=== PATIENT | male | born 1970 | race Asian ===

== ENCOUNTER 2016-07-01 11:15 | Emergency (ER) | payer OTHER, MEDICAID ==
[~2016-07-01] VITALS: Ht 174 cm; Wt 83.2 kg
[2016-07-01 11:27] VITALS: BP 149/109
--- NOTE | 2016-07-01 14:06 | NUR ---
PATIENT BECAME AGITATED AND WAS IN ER LOBBY BOTHERING OTHER CLIENTS AND ASKING FOR FOOD AND AND DRINKS. SECURITY WAS CALLED AND PATIENT WAS ESCORTED OUTSIDE AND CARMELLA PERRY WAS CALLED. ON ARRIVAL OFFICERS APPROACHED THIS CLIENT AND HE WAS ASKED TO LEAVE HOSPITAL GROUNDS HE HAD NO MEDICAL COMPLAINT. PERSON WAS ESCORTED TO SIDE WALK BY CARMELLA PERRY AND SECURITY. NO FURTHER CARE GIVEN. PATIENT WAS AWAKE AND ALERT, ABLE TO AMBULATE WITHOUT DIFFICULTY NO DISTRESS NOTED.
== END 2016-07-01 14:06 | disposition left against medical advice (07) ==
LOC: MED 11:15
DX: Z04.8 Encounter for examination and observation for other specified reasons (principal); Z53.21 Procedure and treatment not carried out due to patient leaving prior to being seen by health care provider

== ENCOUNTER 2016-07-01 19:10 | Inpatient (IN) | payer MEDICAID, MEDICARE, OTHER ==
[~2016-07-01] VITALS: Ht 167.6 cm; Wt 69.9 kg
[2016-07-01 19:40] VITALS: BP 145/70
--- NOTE | 2016-07-01 19:40 | NUR ---
PATIENT LEFT WITHOUT BEING SEEN BY DR. VASQUEZ. NO FURTHER CARE PROVIDED FOR PATIENT.
--- NOTE | 2016-07-01 22:40 | NUR ---
PT TAKEN TO BED 3
--- NOTE | 2016-07-01 22:42 | NUR ---
Dr. Yun evaluating patient at bedside.
[2016-07-01] MEDS ORDERED: OLANZapine 5 MG TAB PO STA (22:48)
--- NOTE | 2016-07-01 22:48 | NUR ---
All evening pt has been sitting and pacing waiting room. Pt unable to answer most questions, just smiles and giggles when asked questions. Attempted to call number on file and only get voice mail which pt voice greeting in a very lucid message. Brought pt back to Room [address] Yun evaluate.
[2016-07-01] MEDS ORDERED: OLANZapine 5 MG TAB ONE (23:15)
--- NOTE | 2016-07-01 23:35 | NUR ---
45Y/M PATIENT PRESENTS TO ED WITH C/O EPISODE OF CRYING . PT WAS SEEN AT [facility] STEP OUT WITH CRYING AND NOT CO-ORDINATE WITH STAFFS.; SKIN IS PINK/WARM/DRY; PT. AAO X 1 TO SELF, NOT CO-ORDINATE, UNABLE TO ANSWER ALL QUESTION. AMBULATORY WITH UNSTEADY GAIT; LUNGS CLEAR BL; HR EVEN AND REGULAR; PT DENIES ANY FEVER, CP, SOB, OR COUGH AT THIS TIME; PATIENT STATES PAIN OF 0/10 AT THIS TIME; VSS; PATIENT POSITIONED FOR COMFORT; HOB ELEVATED; BEDRAILS UP X2; BED DOWN. ER MD MADE AWARE OF PT STATUS.
--- NOTE | 2016-07-01 23:43 | NUR ---
PT TAKEN TO CT
--- NOTE | 2016-07-02 | NUR ---
PT RETURN FROM CT
--- NOTE | 2016-07-02 00:20 | NUR ---
UNABLE TO COLLECT URINE SPECIMEN, DR. VASQUEZ MADE AWARE.
--- NOTE | 2016-07-02 01:16 | NUR ---
Patient will be admitted to care of DR. ARGUELLES. Admited to TELEMETRY Will go to room 124. Belongings list completed.
--- NOTE | 2016-07-02 01:34 | NUR ---
REPORT GIVEN TO MARK VALENTIN.
[2016-07-02] MEDS ORDERED: HYDROcodone/APAP 5/325 MG 1 TAB TAB PO PRN (01:50)
[2016-07-02] MEDS ORDERED: ONDANSETRON 4 MG/2 ML VIAL IVP PRN (01:50)
[2016-07-02] MEDS ORDERED: MORPHINE SULFATE 2 MG/ML SYR IVP PRN (01:50)
[2016-07-02] MEDS ORDERED: ACETAMINOPHEN 325 MG TAB PO PRN (01:50)
[2016-07-02] MEDS ORDERED: LORazepam 2 MG/ML VIAL IVP PRN ×2 (02:00→18:05)
--- NOTE | 2016-07-02 02:10 | NUR ---
Admitted from E.. with chief complaint of ALTERED LEVEL OF CONSCIOUSNESS. A 45 y/o. Male, Fatigued. PT IS VERY DROWSY RIGHT NOW BUT ABLE TO FOLLOW SIMPLE COMMANDS AND ABLE TO ANSWER SIMPLE QUESTIONS. NO C/O PAIN OR ANY DISCOMFORT AT THIS TIME. SKIN IS INTACT CLEAN DRY AND WARM TO TOUCH. PLAN OF CARE REVIEWED TO PT BUT UNABLE TO COMPREHEND. oriented to call light, bed, phone,television, bathroom, smoking policy, visiting hours, procedures, ID bracelet on. Belongings list checked. CALL LIGHT WITHIN REACH. WILL CONTINUE TO MONITOR.
[2016-07-02] MEDS: NACL 0.9% 1,000 ML IV SCH ×3 (02:50→20:21)
[2016-07-02 04:00] VITALS: BP 122/74
--- NOTE | 2016-07-02 04:30 | NUR ---
PT STILL SLEEPING RIGHT NOW BUT EASILY AROUSABLE. NO S/S OF ANY DISCOMFORT AT THIS TIME. ALL NEEDS ARE ATTENDED. CALL LIGHT WITHIN REACH. WILL CONTINUE TO MONITOR.
--- NOTE | 2016-07-02 06:00 | NUR ---
AM CARE RENDERED. BED LINEN CHANGED. INSTRUCTED PT REPOSITION. KEPT CLEAN AND DRY. CALL LIGHT WITHIN REACH, WILL CONTINUE TO MONITOR.
--- NOTE | 2016-07-02 07:30 | NUR ---
PT HAS NO S/S OF ANY DISCOMFORT. PLAN OF CARE ENDORSE TO WEI VALENTIN AT BEDSIDE FOR CONTINUITY OF CARE.
--- NOTE | 2016-07-02 07:30 | NUR ---
RECEIVED PT FROM MARK VALENTIN. PT IS LETHARGIC, DOES NOT FOLLOW COMMANDS. ON ROOM AIR, NO S/S OF RESPIRATORY DISTRESS NOTED. IV TO RIGHT AV #20, INTACT AND PATENT. VITALS TAKEN IN NORMAL RANGE. PT HAS GENERALIZED WEAKNESS, CALL LIGHT IN REACH, HOB ELEVATED 30 DEGREES WITH LOW BED POSITION. WILL CONTINUE TO MONITOR.
[2016-07-02 08:00] VITALS: BP 100/72
--- NOTE | 2016-07-02 08:12 | NUR ---
PATIENT HAS BEEN SCREENED AND CATEGORIZED LOW NUTRITION RISK. PATIENT WILL BE SEEN WITHIN 7 DAYS OF ADMISSION. 07/08/[address]
--- NOTE | 2016-07-02 09:15 | NUR ---
AWARE PT IS DROWSY.
--- NOTE | 2016-07-02 11:17 | NUR ---
US TECH AT BEDSIDE.
[2016-07-02 12:00] VITALS: BP 107/77
--- NOTE | 2016-07-02 12:05 | NUR ---
CHECKED PT, PT IS STILL DROWSY, VITALS TAKEN, IN NORMAL RANGE.
--- NOTE | 2016-07-02 14:42 | NUR ---
CHECKED PT, PT STILL DROWSY, ON 0.9 NS IVF, SITE INTACT AND PATENT. PT MUMBLING.
--- NOTE | 2016-07-02 15:19 | NUR ---
PT LEFT UNIT FOR ABDOMEN CT VIA BED.
[2016-07-02 16:00] VITALS: BP 107/70
--- NOTE | 2016-07-02 16:00 | NUR ---
PT BACK TO UNIT
--- NOTE | 2016-07-02 17:30 | NUR ---
DR. FAN AT BEDSIDE TO ASSESS PT.
--- NOTE | 2016-07-02 18:00 | NUR ---
PT IS DROWSY BUT ABLE TO WAKE UP. NO SOB.
[2016-07-02] MEDS ORDERED: THIAMINE 100 MG TAB PO SCH (18:07)
[2016-07-02] MEDS ORDERED: FOLIC ACID 1 MG TAB PO SCH (18:07)
[2016-07-02] MEDS ORDERED: POTASSIUM CHLORIDE 20% 40 MEQ/15 ML UDC PO SCH (18:09)
--- NOTE | 2016-07-02 19:05 | NUR ---
PT OPENS EYES, ABLE TO FOLLOW COMMANDS.
--- NOTE | 2016-07-02 19:30 | NUR ---
RECEIVED REPORT FROM WEI VALENTIN AT BEDSIDE. PT IS STILL SLEEPY BUT ABLE TO FOLLOW SIMPLE COMMANDS. INITIAL ASSESSMENT DONE. NO S/S OF RESPIRATORY DISTRESS OR SOB NOTED. NO C/O PAIN OR ANY DISCOMFORT AT THIS TIME. PLAN OF CARE REVIEWED TO PT AND VERBALIZED UNDERSTANDING AND NEED TO BE REINFORCED. CALL LIGHT WITHIN REACH. WILL CONTINUE TO MONITOR.
[2016-07-02 20:00] VITALS: BP 111/74
[2016-07-02] MEDS: LORazepam 1 MG TAB PO SCH (20:04)
[2016-07-03] VITALS: BP 117/71
--- NOTE | 2016-07-03 00:10 | NUR ---
PT IS SLEEPING RIGHT NOW BUT EASILY AROUSABLE. NO S/S OF ANY DISCOMFORT AT THIS TIME. ALL NEEDS ARE ATTENDED. CALL LIGHT WITHIN REACH. WILL CONTINUE TO MONITOR.
[2016-07-03 04:00] VITALS: BP 114/72
[2016-07-03] MEDS: LORazepam 1 MG TAB PO SCH ×3 (04:53→21:21)
--- NOTE | 2016-07-03 05:45 | NUR ---
AM CARE RENDERED. BED LINEN CHANGED. INSTRUCTED PT REPOSITION. KEPT CLEAN AND DRY. CALL LIGHT WITHIN REACH, WILL CONTINUE TO MONITOR.
--- NOTE | 2016-07-03 07:24 | NUR ---
PT HAS NO S/S OF ANY DISCOMFORT. PLAN OF CARE ENDORSE TO VALERY RN AT BEDSIDE FOR CONTINUITY OF CARE.
--- NOTE | 2016-07-03 07:25 | NUR ---
ALERT AND ORIENTED X4 WITH SELECTIVE RESPONSE, FOLLOWS COMMANDS, PERRLA, BREATHING EVEN AND UNLABORED ON ROOM AIR, NO SIGNS OF ACUTE DISTRESS, SKIN WARM, DRY AND INTACT, NO C/O PAIN OR NAUSEA AND VOMITING, ABDOMEN SOFT, VOIDS INDEPENDENTLY WITHOUT DIFFICULTY, ON FALL RISK PRECAUTIONS HOWEVER AMBULATES WITH STANDBY ASSIST, BED IN LOW POSITION WITH SIDE RAILS UP, CALL LIGHT WITHIN REACH.
[2016-07-03] MEDS: NACL 0.9% 1,000 ML IV SCH ×3 (07:47→17:47)
[2016-07-03 07:58] VITALS: BP 100/70
[2016-07-03] MEDS: THIAMINE 100 MG TAB PO SCH (08:59)
[2016-07-03] MEDS: FOLIC ACID 1 MG TAB PO SCH (09:00)
[2016-07-03 11:45] VITALS: BP 114/77
--- NOTE | 2016-07-03 12:25 | NUR ---
SEEN BY COAT AGENT, WILL RECEIVE INFORMATION ON ROOM AND BOARD.
--- NOTE | 2016-07-03 14:00 | NUR ---
NEW AM LAB ORDERS RECEIVED FROM DR. FAN. NOTED AND CARRIED OUT.
--- NOTE | 2016-07-03 14:02 | NUR ---
1220 MET WITH PT AT BEDSIDE PT WITH FLAT AFFECT. DID NOT OFFER INFORMATION AND SEEMED RELUCTANT TO ANSWER QUESTIONS. STATED THAT HE IS HOMELESS. ASKED PT WHERE HE USUALLY HANGS OUT AND HE STATED THAT HE IS FROM [facility] AND [facility] [place]. STATED HE WAS ON A BUS AND HE GOT OFF AT [place] BECAUSE "IT LOOKED LIKE A NICE PLACE". PT STATED THAT HE DOESN'T HAVE ANY PLANS FOR WHEN HE IS DISCHARGED. STATED HE GETS [employer]PROX $800.00 PER MONTH SSI. WHEN ASKED WHAT HE USED HIS MONEY FOR HE STATED "IV'E DONE SOME BAD THINGS, GAMBLED DRUGS". ASKED PT IF HE WOULD BE INTERESTED IN A ROOM AND BOARD AND HE STATED HE MIGHT BE. INFORMED HIM I WILL HAVE SW VISIT WITH RESOURCES.
--- NOTE | 2016-07-03 15:08 | NUR ---
SPOKE WITH CARLTON FROM [employer]. SHE SAID SHE HAS THE PATIENT. FAXED INITIAL REVIEW TO [facility] [phone] PHONE CARLTON [phone].
[2016-07-03 16:00] VITALS: BP 122/86
--- NOTE | 2016-07-03 18:53 | NUR ---
PT ALERT AND RESPONSIVE, NO SIGNS OF ACUTE DISTRESS. WILL ENDORSE TO ONCOMING INSEAM LEVELER NURSE FOR CONTINUITY OF CARE.
--- NOTE | 2016-07-03 19:25 | NUR ---
RECEIVED REPORT FROM BARBIE RASMUSSEN/LIANG AT BEDSIDE. INITIAL ASSESSMENT COMPLETED. PT AAOX4. PT VERY QUIET. PERIODS OF SELECTIVE RESPONSIVENESS. PT AMBULATES. PT'S SKIN IS INTACT. PT HAS IV TO RIGHT AC G 20; ASYMPTOMATIC, PATENT AND INTACT INFUSING FLUIDS WELL. ORIENTED PT TO ROOM AND SURROUNDINGS AND USE OF CALL LIGHT. EXPLAINED PLAN OF CARE TO PT. CALL LIGHT WITHIN REACH.
[2016-07-03 20:00] VITALS: BP 113/71
--- NOTE | 2016-07-03 21:25 | NUR ---
PT TOLERATED 2100 MED WELL. PT EDUCATED ON MEDICATION. WILL CONTINUE TO MONITOR PT.
--- NOTE | 2016-07-03 23:58 | NUR ---
PT REFUSES TO USE SCDS. EXPLAINED TO PT THE IMPORTANCE OF WEARING THE SCDS BUT HE STILL REFUSES. CALL LIGHT WITHIN REACH.
--- NOTE | 2016-07-04 00:30 | NUR ---
PT REFUSED TO HAVE VITAL SIGNS CHECKED. EXPLAINED TO HIM THE IMPORTANCE OF CHECKING HIS VITAL SIGNS BUT PT STILL REFUSED. WILL CONTINUE TO MONITOR PT.
[2016-07-04] MEDS: NACL 0.9% 1,000 ML IV SCH ×2 (01:02→13:47)
--- NOTE | 2016-07-04 02:15 | NUR ---
PT REQUESTING ICED WATER, WILL PROVIDE WITH PT'S NEEDS. CALL LIGHT WITHIN REACH.
[2016-07-04 04:00] VITALS: BP 118/72
[2016-07-04] MEDS: LORazepam 1 MG TAB PO SCH ×2 (05:09→12:14)
--- NOTE | 2016-07-04 05:10 | NUR ---
PT TOLERATED 0500 MED WELL. VS STABLE, WILL CONTINUE TO MONITOR PT.
--- NOTE | 2016-07-04 06:19 | NUR ---
PT REFUSED MORNING LAB DRAWS. COMMUNITY AIDE STATED THAT SHE WILL TRY LATER. WILL CONTINUE TO MONITOR PT.
--- NOTE | 2016-07-04 07:16 | NUR ---
ENDORSED PLAN OF CARE TO VALERY/LIANG FOR CONTINUITY OF CARE. PT IN STABLE CONDITION.
--- NOTE | 2016-07-04 07:17 | NUR ---
PT. AWAKE, ALERT AND ORIENTED X4, BREATHING EVEN AND UNLABORED BILATERALLY, NO APPARENT DISTRESS, ABDOMEN IS SOFT AND NON-TENDER TO TOUCH, SKIN DRY, WARM AND INTACT, BOWEL AND BLADDER CONTINENCE, PT. IS ABLE TO PERFORM ADL'S, AMBULATORY WITH STANDBY ASSIST, DENIES PAIN, SIDE RAILS UP, BED LOCKED WITH ALARMS ON, IN LOW POSITION, ALL NEEDS ATTENDED, CALL LIGHT WITHIN REACH.
[2016-07-04 07:50] VITALS: BP 121/75
[2016-07-04] MEDS: FOLIC ACID 1 MG TAB PO SCH (08:41)
[2016-07-04] MEDS: THIAMINE 100 MG TAB PO SCH (08:41)
--- NOTE | 2016-07-04 12:51 | NUR ---
NEW LAB ORDERS RECEIVED FROM DR. GREWAL. NOTED AND CARRIED OUT.
--- NOTE | 2016-07-04 14:47 | NUR ---
PT REFUSED LAB REDRAW. RISKS AND BENEFITS MADE AWARE.
--- NOTE | 2016-07-04 15:48 | NUR ---
PT REQUESTED TO SIGN AMA. RISKS AND BENEFITS EXPLAINED. DR. GREWAL MADE AWARE. PT SIGNED AMA, AND LEFT UNIT WITH PERSONAL BELONGINGS. IV LINE AND WRIST BANDS REMOVED. PT IS ALERT NO SIGNS OF ACUTE DISTRESS. NO C/O OF PAIN. ABLE TO AMBULATE AND WALK OUT OF UNIT.
--- NOTE | 2016-07-04 15:48 | NUR ---
CHARGE NURSE AND MACHINIST AUTOMOTIVE AWARE OF AMA.
== END 2016-07-04 15:48 | disposition left against medical advice (07) | DRG 52 ==
LOC: MED 19:10 → MTU 07-02 01:16
PROVIDERS: ADMIT Family Medicine; ATTEND Family Medicine
DX: G92 Toxic encephalopathy (principal); N17.0 Acute kidney failure with tubular necrosis; E44.0 Moderate protein-calorie malnutrition; E83.51 Hypocalcemia; F20.1 Disorganized schizophrenia; F10.20 Alcohol dependence, uncomplicated; E80.6 Other disorders of bilirubin metabolism; E87.6 Hypokalemia; E11.9 Type 2 diabetes mellitus without complications; Z60.2 Problems related to living alone; F15.10 Other stimulant abuse, uncomplicated; F17.210 Nicotine dependence, cigarettes, uncomplicated; F22 Delusional disorders; Y90.9 Presence of alcohol in blood, level not specified; Z53.21 Procedure and treatment not carried out due to patient leaving prior to being seen by health care provider; Z68.24 Body mass index [BMI] 24.0-24.9, adult; Z59.0 Homelessness; Y92.89 Other specified places as the place of occurrence of the external cause; Z87.820 Personal history of traumatic brain injury; Z91.83 Wandering in diseases classified elsewhere; Z71.51 Drug abuse counseling and surveillance of drug abuser; Z71.3 Dietary counseling and surveillance